=== PATIENT | female | born 1940 | race Caucasian/White ===

== ENCOUNTER 2020-08-13 09:12 | Outpatient (CLI) | payer MEDICARE ==
--- NOTE | 2020-08-13 09:40 | RAD ---
Abdomen one view HISTORY: Abdomen pain. FINDINGS: Gas and stool overlying the colon and rectum. Small bowel gas pattern is nonspecific. Metal lic clips overlie the gallbladder fossa. Phleboliths project over the pelvis. Compression fractures of L1 and L4 similar to recent CT exam. IMPRESSION : Chronic-type findings are stable. No acute abnormalities are demonstrated.
== END 2020-08-13 09:13 | disposition home or self-care (01) ==
LOC: BICRAD 09:12
PROVIDERS: ATTEND Physician Assistant Medical
DX: R10.9 Unspecified abdominal pain (principal)
CPT/HCPCS: 74018

== ENCOUNTER 2021-10-12 22:35 | Inpatient (IN) | payer MEDICARE ==
[2021-10-13 02:22] VITALS: BMI 20.2
[2021-10-13] MEDS ORDERED: Promethazine HCl 25 MG/ML VIAL IM PRN (02:30)
[2021-10-13] MEDS ORDERED: Ondansetron PF 4 MG/2 ML Vial IVP PRN (02:30)
[2021-10-13] MEDS ORDERED: hydrALAZINE 20 MG/ML VIAL SLOW IVP PRN (02:30)
[2021-10-13] MEDS: Acetaminophen 325 MG TAB PO SCH ×3 (05:29→18:16)
[2021-10-13 08:22] LABS: #Eosinphils 0.4 thou/uL (0.0-0.7); #Lymphocytes 0.9 thou/uL (1.20-3.40); #Monocytes 0.7 thou/uL (0.11-0.59); #Neutrophils 5.6 thou/uL (1.40-6.50); %Basophils 0.5 % (0.0-1.0); %Eosinophils 5.1 % (0.0-10.0); %Lymphocytes 11.9 % (21.0-51.0); %Monocytes 9.6 % (0.0-10.0); %Neutrophils 72.9 % (42.0-75.0); Hemoglobin 8.4 g/dL (12.0-16.0); Mean Corpuscular HGB CONC 34.5 g/dL (32.0-36.0); Mean Corpuscular Hemoglobin 32.8 pg (27.0-31.0); Mean Corpuscular Volume 95.2 fL (78.0-98.0); Mean Platelet Volume 5.7 fL (7.4-10.4); Platelet Count 379 thou/uL (130-400); RBC Distribution Width 13.3 % (11.5-14.5); Red Blood Cell (RBC) Count 2.55 mill/uL (4.20-5.40); White Blood Cell (WBC) Count 7.7 thou/uL (4.8-10.8)
[2021-10-13] MEDS: Polyethylene Glycol 3350 17 GM Packet PO SCH (08:31)
[2021-10-13] MEDS: Senokot S 8.6-50 MG TAB PO SCH ×2 (08:31→21:54)
[2021-10-13] MEDS: Carvedilol 6.25 MG TAB PO SCH ×2 (08:31→21:51)
[2021-10-13] MEDS: Dofetilide 0.125 MG CAP PO SCH ×2 (08:31→21:53)
[2021-10-13 08:35] LABS: Anion Gap 12 mmol/L (10-20); BUN (Urea Nitrogen) 28 mg/dL (9.8-20.1); Calc. Creatinine Clearance 45 mL/min (70-130); Calcium 8.3 mg/dL (7.8-10.44); Carbon Dioxide 25 mmol/L (23-31); Chloride 99 mmol/L (98-107); Glucose 130 mg/dL (83-110); Magnesium 2.6 mg/dL (1.6-2.6); Potassium 3.5 mmol/L (3.5-5.1); Sodium 132 mmol/L (136-145)
[2021-10-13] MEDS ORDERED: Cyclobenzaprine 10 MG TAB PO PRN (10:05)
[2021-10-13] MEDS: Ferrous Sulfate 325 MG TAB PO SCH (18:16)
[2021-10-13] MEDS: Ascorbic Acid 500 mg Chewable Tablet PO SCH (18:16)
[2021-10-13] MEDS ORDERED: Rosuvastatin 5 MG TAB PO SCH (21:00)
[2021-10-13] MEDS ORDERED: Ascorbic Acid 500 mg Chewable Tablet PO SCH (21:00)
[2021-10-13] MEDS: Sodium Bicarbonate Tab 325 MG TAB PO SCH (21:51)
[2021-10-14] MEDS: Acetaminophen 325 MG TAB PO SCH ×4 (01:11→18:09)
[2021-10-14 05:55] LABS: #Eosinphils 0.6 thou/uL (0.0-0.7); #Lymphocytes 1.4 thou/uL (1.20-3.40); #Monocytes 0.9 thou/uL (0.11-0.59); #Neutrophils 4.7 thou/uL (1.40-6.50); %Basophils 0.2 % (0.0-1.0); %Eosinophils 7.5 % (0.0-10.0); %Lymphocytes 18.4 % (21.0-51.0); %Monocytes 12.2 % (0.0-10.0); %Neutrophils 61.8 % (42.0-75.0); Hemoglobin 8.7 g/dL (12.0-16.0); Mean Corpuscular HGB CONC 34.3 g/dL (32.0-36.0); Mean Corpuscular Hemoglobin 34.4 pg (27.0-31.0); Mean Platelet Volume 5.8 fL (7.4-10.4); Platelet Count 371 thou/uL (130-400); RBC Distribution Width 13.9 % (11.5-14.5); Red Blood Cell (RBC) Count 2.52 mill/uL (4.20-5.40); White Blood Cell (WBC) Count 7.6 thou/uL (4.8-10.8)
[2021-10-14 06:21] LABS: Anion Gap 12 mmol/L (10-20); BUN (Urea Nitrogen) 23 mg/dL (9.8-20.1); Calc. Creatinine Clearance 47 mL/min (70-130); Calcium 8.3 mg/dL (7.8-10.44); Carbon Dioxide 21 mmol/L (23-31); Chloride 99 mmol/L (98-107); Glucose 103 mg/dL (83-110); Magnesium 2.3 mg/dL (1.6-2.6); Potassium 3.8 mmol/L (3.5-5.1); Sodium 128 mmol/L (136-145)
[2021-10-14] MEDS ORDERED: Sodium Chloride 0.9% 1,000 ML IV SCH (07:30)
[2021-10-14] MEDS ORDERED: Cyanocobalamin (Vitamin B-12) 1,000 MCG TAB PO SCH (09:00)
[2021-10-14] MEDS: Carvedilol 6.25 MG TAB PO SCH (09:15)
[2021-10-14] MEDS: Senokot S 8.6-50 MG TAB PO SCH (09:15)
[2021-10-14] MEDS: Sodium Bicarbonate Tab 325 MG TAB PO SCH (09:15)
[2021-10-14] MEDS: Ferrous Sulfate 325 MG TAB PO SCH (09:15)
[2021-10-14] MEDS: Ascorbic Acid 500 mg Chewable Tablet PO SCH (09:16)
[2021-10-14] MEDS: Dofetilide 0.125 MG CAP PO SCH (09:16)
[2021-10-14] MEDS: Polyethylene Glycol 3350 17 GM Packet PO SCH (09:17)
[2021-10-14] MEDS ORDERED: Nitrofurantoin Monohyd/M-Cryst 100 MG CAP PO SCH ×2 (12:30→21:00)
[2021-10-14] MEDS ORDERED: Rivaroxaban 15 MG TAB PO SCH (17:00)
[2021-10-14] MEDS ORDERED: Ferrous Sulfate 325 MG TAB PO SCH (17:00)
[2021-10-14 19:38] VITALS: BP 146/72; TEMP 98
[2021-10-14] MEDS ORDERED: Carvedilol 6.25 MG TAB PO SCH (21:00)
[2021-10-14] MEDS ORDERED: Ascorbic Acid 500 mg Chewable Tablet PO SCH (21:00)
== END 2021-10-14 20:30 | DRG 552 ==
LOC: SJJU 22:35
PROVIDERS: ADMIT Surgery; ATTEND Surgery
DX: S22.051A Stable burst fracture of T5-T6 vertebra, initial encounter for closed fracture (principal); N39.0 Urinary tract infection, site not specified; E87.1 Hypo-osmolality and hyponatremia; I48.20 Chronic atrial fibrillation, unspecified; S22.061A Stable burst fracture of T7-T8 vertebra, initial encounter for closed fracture; S42.002A Fracture of unspecified part of left clavicle, initial encounter for closed fracture; D64.9 Anemia, unspecified; I10 Essential (primary) hypertension; E78.5 Hyperlipidemia, unspecified; I25.10 Atherosclerotic heart disease of native coronary artery without angina pectoris; W01.0XXA Fall on same level from slipping, tripping and stumbling without subsequent striking against object, initial encounter; Z79.01 Long term (current) use of anticoagulants; Z88.5 Allergy status to narcotic agent; Z88.2 Allergy status to sulfonamides; Z79.899 Other long term (current) drug therapy; Z95.5 Presence of coronary angioplasty implant and graft; Z90.710 Acquired absence of both cervix and uterus; Z90.89 Acquired absence of other organs
CPT/HCPCS: 36415; 36416; 70450; 71045; 72125; 72128; 72170; 80048; 80053; 82533; 83735; 84100; 84443; 84484; 85025; 85610; 85730; 87040; 87077; 87086; 87186; 90471; 90715; 93005; J0360; J0696; J3490; J7050; J8499; U0002